=== PATIENT | male | born 1985 | race Caucasian/White ===

== ENCOUNTER 2018-10-13 13:54 | Emergency (ER) | payer OTHER ==
[~2018-10-13] VITALS: Wt 85.0 kg
[2018-10-13 16:06] VITALS: BP 129/83; PULSE 75; RESP 18
[2018-10-13] MEDS ORDERED: IBUPROFEN 600 MG TAB PO ONE (17:00)
[2018-10-13] MEDS ORDERED: LORAZEPAM 0.5 MG TAB PO ONE (17:00)
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
[2018-10-13] MEDS ORDERED: LORA-441 PO (17:57)
[2018-10-13] MEDS ORDERED: IBUP-1542 PO (17:57)
== END 2018-10-13 18:19 | disposition home or self-care (01) ==
LOC: FTE 13:54
DX: M54.2 Cervicalgia (principal); M25.512 Pain in left shoulder
CPT/HCPCS: 70450; 71046; 72040; 73030; Z7502; Z7610